=== PATIENT | female | born 1970 | race Caucasian/White ===

== ENCOUNTER → 2018-12-08 | Outpatient (CLI) | payer MEDICARE, MEDICAID | LOC: RAD 10:15 | PROVIDERS: ATTEND Nurse Practitioner Primary Care | DX: Z12.31 Encounter for screening mammogram for malignant neoplasm of breast (principal); Z53.8 Procedure and treatment not carried out for other reasons ==

== ENCOUNTER → 2018-12-20 | Outpatient (CLI) | payer MEDICARE, MEDICAID ==
--- NOTE | 2018-12-20 21:32 | Diagnostic Imaging Report ---
INDICATION: Bilateral breast pain as well as nipple discharge. No prior mammograms are available for comparison. Bilateral 2-D and 3-D diagnostic mammography was performed with computer-aided Detection (CAD) system. FINDINGS: Both breasts are primarily involutional. There is some mild ductal ectasia and nodularity in the retroareolar aspect of the left breast slightly superiorly and laterally. Further evaluation of this area with ultrasound is recommended and will be performed. There are some calcifications in both breasts. The right breast is unremarkable. No suspicious calcifications or spiculated masses are seen. The axillae are unremarkable. IMPRESSION: There is some mild nodularity in the retroareolar left breast, as described. Further evaluation with ultrasound is recommended and will be performed today. ACR BI-RADS Category 0: Incomplete. (Needs additional imaging evaluation). Result letter will be mailed to the patient. Note: At least 10% of breast cancer is not imaged by mammography. Dictated by: Dictated on workstation # [id number]
--- NOTE | 2018-12-20 21:33 | Diagnostic Imaging Report ---
INDICATION: Ductal ectasia and nodularity in the retroareolar left breast. Study is performed for further evaluation. Correlation is made with diagnostic mammogram earlier the same day. FINDINGS: Sonographic interrogation of the retroareolar left breast was performed. There are multiple dilated ducts in the left breast. Some of these ducts do contain some internal debris. No definite intraductal mass is identified. No other abnormalities are seen. IMPRESSION: There is some ductal ectasia containing some debris in the retroareolar left breast. No discrete mass is detected. ACR BI-RADS Category 2: Benign findings. Dictated by: Dictated on workstation # [id number]
== END ==
LOC: RAD 13:09
PROVIDERS: ATTEND Nurse Practitioner Primary Care
DX: N60.42 Mammary duct ectasia of left breast (principal); N63.20 Unspecified lump in the left breast, unspecified quadrant; N64.4 Mastodynia; N64.52 Nipple discharge
CPT/HCPCS: 76642; 77066

== ENCOUNTER → 2019-02-20 | Outpatient (CLI) | payer MEDICARE, MEDICAID ==
[2019-02-20 10:19] LABS: ABG BASE EXCESS 3.5 MMOL/L (-2.5-2.5); ABG OXYGEN SATURATION 78 % (94-100); ABG PCO2 43 MMHG (35-45); ABG PH 7.42 (7.37-7.43); ABG PO2 46 MMHG (79-93); ABG TCO2 29.2 MMOL/L (21.0-31.0)
[2019-02-20 10:20] LABS: ALLENS TEST YES-POS; INSPIRED O2 ROOM AIR; PATIENT TEMP 97.4; VENTILATOR NO
[2019-02-20 10:31] LABS: BUN/CREATININE RATIO 15; CREATININE SERUM 0.79 MG/DL (0.60-1.30); GFR ESTIMATED > 60
--- NOTE | 2019-02-20 11:36 | Diagnostic Imaging Report ---
PROCEDURE: CT chest with contrast only. TECHNIQUE: Multiple contiguous axial images were obtained through the chest after administration of intravenous contrast. Auto Exposure Controls were utilized during the CT exam to meet ALARA standards for radiation dose reduction. DATE: February 20, 2019. COMPARISON: Chest radiographs of February 12, 2016. CT chest of January 05, 2016. CT abdomen and pelvis of December 30, 2010. INDICATION: 48-year-old female, shortness of breath and dizziness. Feet swelling. History of asthma. FINDINGS: There is no identified pulmonary nodule or lung mass. There is no identified focal airspace consolidation. There is no pneumothorax. There is no pleural effusion. The central airways are patent. There is nondiagnostic assessment for subsegmental pulmonary embolus given the timing of the contrast bolus and motion limitations of the study. There is no identified large central pulmonary embolus. The main pulmonary artery is normal in caliber. The heart is not enlarged. There is no identified pericardial effusion. There is no identified abnormally enlarged mediastinal, hilar, or axillary lymph node which meets CT size criteria for adenopathy. The liver is normal in size and contour. There is a low-attenuation lesion in the left lobe of the liver on axial image 31 measuring 7 mm in size which is too small to characterize. This is unchanged since January 05, 2016. The patient is status post cholecystectomy. Additional evaluation of the imaged portions of the upper abdomen is unremarkable. There are nonunited subacute to chronic appearing fractures of the left 9th and 10th ribs. There are degenerative changes of the spine. IMPRESSION: 1. No identified acute cardiopulmonary abnormality. 2. Nonunited subacute to chronic appearing fractures of the left 9th and 10th ribs. Dictated on workstation # [id number]
== END ==
LOC: RAD 09:44
PROVIDERS: ATTEND Nurse Practitioner Family
DX: J44.9 Chronic obstructive pulmonary disease, unspecified (principal); S22.42XK Multiple fractures of ribs, left side, subsequent encounter for fracture with nonunion; J30.9 Allergic rhinitis, unspecified; J98.4 Other disorders of lung; G47.10 Hypersomnia, unspecified
CPT/HCPCS: 36415; 71260; 82565; 82805; 84520

== ENCOUNTER → 2019-03-15 | Outpatient (CLI) | payer MEDICARE, MEDICAID | END | disposition home or self-care (01) | LOC: SLEEP 20:33 | PROVIDERS: ATTEND Nurse Practitioner Family | DX: G47.33 Obstructive sleep apnea (adult) (pediatric) (principal); J44.9 Chronic obstructive pulmonary disease, unspecified; J30.9 Allergic rhinitis, unspecified; J98.4 Other disorders of lung; G47.10 Hypersomnia, unspecified | CPT/HCPCS: 95811 ==

== ENCOUNTER → 2019-05-08 | Outpatient (CLI) | payer MEDICARE, MEDICAID ==
[~2019-05-08] MED LIST: RT-ALBUTEROL SULF 2.5 MG/3 ML PRE-MIX VIAL INH ONE
== END ==
LOC: RT 09:41
PROVIDERS: ATTEND Nurse Practitioner Family
DX: J44.9 Chronic obstructive pulmonary disease, unspecified (principal); R06.00 Dyspnea, unspecified; J98.4 Other disorders of lung; G47.10 Hypersomnia, unspecified
CPT/HCPCS: 94060; 94640; 94726; 94729